=== PATIENT | female | born 1990 | race Caucasian/White ===

== ENCOUNTER 2023-07-08 21:23 | Inpatient (IN) | payer OTHER, SELFPAY ==
[2023-07-08] VITALS (13 sets, daily range): BP systolic 130–164; BP diastolic 62–83; PULSE 117–131; TEMP 37.6; O2SAT 98–99; BMI 37.7
[2023-07-08 19:38] LABS: ROM Internal Control Test YES-OK TO RESULT pt. (Internal QC); ROM Patient Test Negative (Negative)
[2023-07-08 20:40] LABS: Hematocrit 35.4 % (37-47); Hemoglobin 11.9 g/dL (12.0-15.0); Mean Corp Hgb Conc 33.6 g/dL (32-36); Mean Corpuscular Hgb 30.2 pg (27.0-32.0); Mean Corpuscular Volume 89.8 fL (81-99); Mean Platelet Vol. 10.7 fl (6.2-12.0); Platelet Count 165 K/mm3 (150-450); RBC Distribution Width CV 12.9 % (11.6-14.6); RBC Distribution Width SD 42.8 fl (35.1-43.9); Red Blood Count 3.94 M/mm3 (4.2-5.4); White Blood Count 10.2 K/mm3 (4.4-11.0)
[2023-07-08 20:59] LABS: AST(SGOT) 30 U/L (15-37); Alanine Aminotransfer ALT/SGPT 14 U/L (13-56); Creatinine, Serum 0.69 mg/dL (0.55-1.02); EST Glomerular Filtration Rate 103 mL/min (>60); Est Glom Filt Rate - Afr Amer 125 mL/min (>60); Estimated Creatinine Clearance 147.71 ml/min; Uric Acid 4.7 mg/dL (2.6-6.0)
[2023-07-08 21:17] LABS: Protein:Creat Ratio 282 mg/g CRE (0-200)
[2023-07-08 22:25] LABS: Syphilis Antibodies Non-reactive
[2023-07-08] MEDS: Acetaminophen 500 MG Tablet PO (22:28)
[2023-07-08] MEDS: miSOPROStol 25 MCG TABLET PO (22:29)
[2023-07-09] VITALS (46 sets, daily range): BP systolic 100–146; BP diastolic 49–87; PULSE 80–223; RESP 18; TEMP 36.1–37.1; O2SAT 85–99
[2023-07-09] MEDS: miSOPROStol 25 MCG TABLET PO (02:41)
[2023-07-09] MEDS: Ondansetron 4 MG/2 ML Vial IV (07:45)
[2023-07-09] MEDS: Lactated Ringers 1,000 ML 200 ML IV ×2 (07:46→12:46)
[2023-07-09] MEDS: LACTATED RINGERS 500 ML 999 ML IV (07:47)
[2023-07-09] MEDS: Oxytocin 15 Units/NS 250ml 15 UNITS/250 ML IV.SOLN 2 UNITS IV (08:36)
--- NOTE | 2023-07-09 08:53 | HP.PCM.OB_ITS ---
HPI - General General Date of Admission: 07/08/23 Date of Service: 07/09/23 HPI Narrative ANNIE BORRERO, is a 32 F @ 37.1 weeks who presents with back pain and pressure while be evaluated noted to have elevated BPs and mild BARRETO, no Visual changes or RUQ pain. [facility] Medical History (Updated 07/09/23 @ 08:[address] Becky Reyes MD) Heart disease (~2013) History of pre-term labor Home Medications ondansetron 4 mg disintegrating tablet mg PO PRN nausea and vomiting 07/08/23 [History Last Taken 07/07/23] vit no.95-ferrous fumarate 28 mg-folic acid 800 mcg tablet () 1 tab PO DAILY 07/08/23 [History Last Taken Unknown] Allergy/AdvReac Type Severity Reaction Status Date / Time No Known Allergies Allergy Verified 07/08/23 22:01 Social History Smoking Status: Never smoker History Elective abortions Hx Para 2 Spontaneous abortions Hx # Term Pregnancies Ectopic pregnancies Hx # Pregnancies Multiple births # of living children Vital Signs Vital Signs Vital Signs: 07/08/23 19:27 07/08/23 19:27 07/08/23 19:28 Temperature Temperature Source Pulse Rate 129 H Blood Pressure 164/83 H BP Systolic 164 BP Diastolic 83 Pulse Ox 99 07/08/23 19:28 07/08/23 19:29 07/08/23 19:29 Temperature Temperature Source Pulse Rate 130 H 131 H Blood Pressure 152/77 H BP Systolic 152 BP Diastolic 77 Pulse Ox 07/08/23 19:29 07/08/23 19:29 07/08/23 19:43 Temperature 99.6 F H Temperature Source Temporal Pulse Rate Blood Pressure 142/71 H BP Systolic 142 BP Diastolic 71 Pulse Ox 07/08/23 19:43 07/08/23 19:43 07/08/23 20:05 Temperature Temperature Source Pulse Rate 129 H Blood Pressure 136/75 H BP Systolic 136 BP Diastolic 75 Pulse Ox 98 07/08/23 20:05 07/08/23 20:14 07/08/23 20:14 Temperature Temperature Source Pulse Rate 126 H 123 H Blood Pressure 136/71 H BP Systolic 136 BP Diastolic 71 Pulse Ox 07/08/23 20:24 07/08/23 20:24 07/08/23 20:35 Temperature Temperature Source Pulse Rate 123 H Blood Pressure 138/69 H 130/62 H BP Systolic 138 130 BP Diastolic 69 62 Pulse Ox 07/08/23 20:35 07/08/23 20:45 07/08/23 20:45 Temperature Temperature Source Pulse Rate 125 H 127 H Blood Pressure 135/71 H BP Systolic 135 BP Diastolic 71 Pulse Ox 07/08/23 20:54 07/08/23 20:54 07/08/23 21:05 Temperature Temperature Source Pulse Rate 118 H Blood Pressure 146/65 H 134/67 H BP Systolic 146 134 BP Diastolic 65 67 Pulse Ox 07/08/23 21:05 07/08/23 21:16 07/08/23 21:16 Temperature Temperature Source Pulse Rate 117 H 125 H Blood Pressure 138/66 H BP Systolic 138 BP Diastolic 66 Pulse Ox 07/08/23 21:25 07/08/23 21:25 07/09/23 00:04 Temperature Temperature Source Pulse Rate 121 H Blood Pressure 141/67 H 100/49 L BP Systolic 141 100 BP Diastolic 67 49 Pulse Ox 07/09/23 00:04 07/09/23 00:04 07/09/23 00:04 Temperature 97.6 F L Temperature Source Temporal Pulse Rate 105 H Blood Pressure BP Systolic BP Diastolic Pulse Ox 07/09/23 02:43 07/09/23 02:43 07/09/23 02:43 Temperature 97.0 F L Temperature Source Pulse Rate 90 Blood Pressure 111/56 L BP Systolic 111 BP Diastolic 56 Pulse Ox 07/09/23 07:22 07/09/23 07:22 07/09/23 07:22 Temperature Temperature Source Temporal Pulse Rate 100 Blood Pressure 131/74 H BP Systolic 131 BP Diastolic 74 Pulse Ox 07/09/23 07:22 07/09/23 08:14 07/09/23 08:14 Temperature 98.8 F Temperature Source Pulse Rate 105 H Blood Pressure 143/66 H BP Systolic 143 BP Diastolic 66 Pulse Ox 07/09/23 08:18 07/09/23 08:18 07/09/23 08:23 Temperature Temperature Source Pulse Rate 105 H Blood Pressure 142/70 H 144/87 H BP Systolic 142 144 BP Diastolic 70 87 Pulse Ox 07/09/23 08:24 07/09/23 08:24 07/09/23 08:29 Temperature Temperature Source Pulse Rate 124 H Blood Pressure 123/59 H BP Systolic 123 BP Diastolic 59 Pulse Ox 94 07/09/23 08:29 07/09/23 08:29 07/09/23 08:33 Temperature Temperature Source Pulse Rate 223 H Blood Pressure 129/60 H BP Systolic 129 BP Diastolic 60 Pulse Ox 91 07/09/23 08:33 07/09/23 08:39 07/09/23 08:39 Temperature Temperature Source Pulse Rate 110 H 109 H Blood Pressure 146/69 H BP Systolic 146 BP Diastolic 69 Pulse Ox 07/09/23 08:39 07/09/23 08:44 07/09/23 08:44 Temperature Temperature Source Pulse Rate 105 H Blood Pressure 134/55 H BP Systolic 134 BP Diastolic 55 Pulse Ox 94 07/09/23 08:49 07/09/23 08:49 07/09/23 08:49 Temperature Temperature Source Pulse Rate 106 H Blood Pressure 108/58 L BP Systolic 108 BP Diastolic 58 Pulse Ox 85 Weight Weight: 109.316 kg Body Mass Index (BMI) 37.7 Labs Labs Labs: Blood Type A POSITIVE Antibody Screen NEGATIVE Hct 35.4 % (37-47) L Hgb 11.9 g/dL (12.0-15.0) L Syphilis Total Ab Non-reactive Assessment & Plan (1) Gestational hypertension: (2) 37 weeks gestation of : (3) History of delivery: PLAN: Plan Admit to L&D Mont[facility] FHR/TOCO Epidural if requested for pain Monitor VS Anticipate Cytotec for cervical ripening then pitocin
--- NOTE | 2023-07-09 09:02 | PCM.PN.BLA ---
Progress Note Pt seen at bedside, comfortable with epidural - VE: /-2 AROM CLear. IUPC placed. Continue pitocin.
[2023-07-09] MEDS: fentaNYL-bupivacaine (epidural) 100 ML BAG EPIDURAL (09:19)
--- NOTE | 2023-07-09 14:29 | EX.PCM.OBRPT ---
Vaginal Delivery Maternal Presentation Maternal Presentation: Medically Indicated Induction Maternal Presentation: gestational hypertension Type of Induction: Pitocin, Amniotomy and Cytotec Operative Information Date of Procedure: 07/09/23 Pre-Operative Diagnosis: Gestational Hypertension, 37+ weeks gestation, H/o delivery, Obesity in Post-Operative Diagnosis: Same, live male Surgery / Procedure Performed: Spontaneous Vaginal Delivery Type of Anesthesia: Epidural Estimated Blood Loss: 100 Time of Delivery: 14:18 Findings Description of Procedure: Patient progressed to fully dilated. Good maternal pushing efforts delivered the infant's head delivered by the anterior shoulder and the posterior shoulder followed by the rest the 's body without complication. The infant was then placed on the mother's chest for immediate skin to skin. Delayed cord clamping was performed. At this time the cord was clamped and cut. Pitocin was started and the placenta was delivered intact without complication. First-degree vaginal laceration was appreciated it was repaired using 3-0 Rapide suture. Presentation: Vertex Amniotic Membrane Rupture Type: Artificial Amniotic Fluid Description: Clear Placental Delivery Description: Expressed Placenta Disposition: [facility] Specimen(s) Removed: Placenta Cord Vessel Description: 3 Vessels Cord Entanglement: None Infant A Gender: Male (1 minute): 9 (5 minute): 9 Delayed Cord Clamping: Yes Post Vaginal Delivery Medications Given After Delivery: IV Pitocin Episiotomy Description: None Laceration: Vaginal Extension/lac and 1st degree Complication Complications: None
[2023-07-09] MEDS: Oxytocin 15 Units/NS 250ml 15 UNITS/250 ML IV.SOLN 83 UNITS IV (14:52)
[2023-07-09] MEDS: Acetaminophen 500 MG Tablet 1000 MG PO ×2 (15:55→22:05)
[2023-07-09] MEDS: Ibuprofen 600 MG Tablet PO (21:30)
[2023-07-10] VITALS (8 sets, daily range): BP systolic 96–126; BP diastolic 53–62; PULSE 63–85; RESP 16–18; TEMP 36.2–36.6; O2SAT 93–99
[2023-07-10] MEDS: Ibuprofen 600 MG Tablet PO ×2 (04:41→10:58)
[2023-07-10] MEDS: Acetaminophen 500 MG Tablet 1000 MG PO ×2 (08:15→15:03)
[2023-07-10] MEDS: Senna/Docusate Sodium 1 Tablet PO (08:16)
[2023-07-10] MEDS: Ondansetron ODT 4 MG Tablet PO (11:11)
--- NOTE | 2023-07-10 11:30 | PCM.PROGNOTE ---
Subjective Subjective patient seen at bedside, doing well. Patient reports good pain control. lochia mild. Objective Data Objective Data Vital Signs: Vital Signs Temp Pulse Resp BP Pulse Ox O2 Del Method 97.9 F 65 16 96/53 L 97 Room Air 07/10/23 08:26 07/10/23 08:27 07/10/23 08:26 07/10/23 08:27 07/10/23 08:26 07/10/23 08:26 Oxygen Delivery Method Room Air Weight: 109.316 kg Body Mass Index (BMI) 37.7 Intake & Output: Intake and Output for Last 24 Hours 07/08/23 07/09/23 07/10/23 23:59 23:59 23:59 Intake Total 2275.50 / 2275.50 Output Total 1600 / 1600 Balance 675.50 / 675.50 Lab / Micro Data 07/08/23 20:10 07/08/23 20:10 Physical Exam Const alert and oriented x3 General Appearance: cooperative HEENT normocephalic Neck General: normal visual inspection GI soft to palpation and non-distended GI Narrative: Fundus firm Extremity normal to inspection and no calf tenderness Skin no rashes or lesions noted Neuro oriented x3 and CN's II-XII intact bilaterally Psych mental status grossly normal Assessment & Plan Assessment/Plan (1) History of delivery: (2) 37 weeks gestation of : (3) Gestational hypertension: (4) Vaginal delivery: PLAN: Plan PPD#1 , Doing well Routine care pain mgmt ambulation Dc home
--- NOTE | 2023-07-10 11:31 | DCINST_ITS ---
Discharge Instructions Diet Discharge Diet: No restrictions Activity May resume sexual activity in: 6-8 weeks Dressing / Incision Call your doctor if you observe: Fever of 101 or Higher, Inability to urinate, Using more than 1 pad per hour and Uncontrolled pain Follow Up Care Please Follow Up With: Becky Reyes MD When: 1-2 weeks post and again at 6 weeks post . [phone] Test Results: Test results from this visit will be discussed in further detail at your follow- up appointment, if applicable. Discharge Plan Admission Admit Date/Time: 07/08/23 21:23 Attending Provider: Becky Reyes Primary Care Provider: Joo Umaña Discharge Orders/Prescriptions Prescriptions: New acetaminophen 500 mg Tablet 1,000 mg PO Q6H PRN PRN (Reason: Pain 1-10 Or Fever) Qty: 0 0RF ibuprofen 600 mg Tablet 600 mg PO Q6H PRN PRN (Reason: Pain Score 1-3) Qty: 0 0RF Continued ondansetron 4 mg tablet,disintegrating PO PRN (Reason: nausea and vomiting) PNV cmb#95-ferrous fumarate-FA [] 28 mg iron- 800 mcg tablet 1 tab PO DAILY Referrals / Follow Up: Joo Umaña DO [Primary Care Provider] - Disposition Disposition (needs filled in before D/C Order can be placed): Home, Self Care
== END 2023-07-10 15:40 | disposition home or self-care (01) | DRG 807 ==
LOC: WPOUT 21:24 → WP 21:24
PROVIDERS: Admitting Provider Obstetrics & Gynecology; PCP Student in an Organized Health Care Education/Training Program; Visit Provider Obstetrics & Gynecology
DX: O13.4 Gestational [pregnancy-induced] hypertension without significant proteinuria, complicating childbirth (principal); Z37.0 Single live birth; O70.0 First degree perineal laceration during delivery; Z3A.37 37 weeks gestation of pregnancy
CPT/HCPCS: 59025; 59050; 82565; 82570; 84112; 84156; 84450; 84460; 84550; 85027; 86780; 86850; 86900; 86901; 99221; J7120; G0378; J2405